=== PATIENT | male | born 1980 | race Two or more races ===

== ENCOUNTER 2018-10-14 12:46 | Emergency (ER) | payer SELFPAY ==
[~2018-10-14] VITALS: Ht 182.9 cm; Wt 107.0 kg
[2018-10-14] MEDS ORDERED: ONDANSETRON ODT 4 MG PO ONE (13:30)
[2018-10-14] MEDS ORDERED: KETOROLAC 30 MG/1 ML IM ONE (13:30)
[2018-10-14 13:58] LABS: BASOPHILS # (AUTO) 0.08 x10^3/uL (0-0.1); BASOPHILS % (AUTO) 1 % (0-1); EOSINOPHILS # (AUTO) 0.02 x10^3/uL (0-0.4); EOSINOPHILS % (AUTO) 0 % (1-7); LYMPHOCYTES # (AUTO) 1.92 x10^3/uL (1-3.4); LYMPHOCYTES % (AUTO) 27 % (22-44); MD NO; MEAN CORPUSCULAR HGB CONC 33.4 g/dL (33.2-36.2); MEAN CORPUSCULAR VOLUME 89.8 fL (81-97); MEAN PLATELET VOLUME 7.3 fL (7.4-10.4); MONOCYTES # (AUTO) 0.41 x10^3/uL (0.2-0.8); MONOCYTES % (AUTO) 6 % (2-9); NEUTROPHILS # (AUTO) 4.81 x10^3/uL (1.8-6.8); NEUTROPHILS % (AUTO) 67 % (42-75); PLATELET COUNT 423 x10^3/uL (130-400); RED BLOOD COUNT 5.56 x10^6/uL (4.38-5.82); RED CELL DISTRIBUTION WIDTH 13.2 % (9.4-14.8)
--- NOTE | 2018-10-14 14:02 | NUR ---
PT PRESENTS TO ED WITH C/O LEFT CP RADIATING TO LEFT ARM AND BACK X 2 WEEKS, DENIES SOB. PT ALSO NOTES LEFT CALF PAIN X 2 WEEKS. PT HAS HX DVT DX 06/2018, HAS BEEN NONCOMPLIANT WITH PRESCRIBED XARALTO D/T COST. PT A&O, NEURO INTACT, RESPS EVEN AND UNLABORED, NSR ON INCIDENT RESPONSE COORDINATOR WITH NO ECTOPY. CALL LIGHT IN REACH. PIV PLACED. AWAITING LABS/CTA AND DISPO.
[2018-10-14 14:10] LABS: ALBUMIN 4.2 g/dL (3.4-5.0); ANION GAP 6 mmol/L (5-15); CHLORIDE 111 mmol/L (98-107); CREATININE 1.25 mg/dL (0.7-1.3)
[2018-10-14 14:14] LABS: TROPONIN I < 0.015 ng/mL (0.000-0.045)
--- NOTE | 2018-10-14 14:40 | NUR ---
VERBAL ORDER RECEIVED TO CHANGE TORADOL ORDER TO 30 MG IV PUSH. PT MEDICATED PER EMAR, TOELERATED WELL. PT A&O, RESPS EVEN AND UNLABORED. NSR ON MONITOR. PT TO CT AT THIS TIME.
[2018-10-14 15:00] VITALS: BP 142/82
[2018-10-14] MEDS ORDERED: KETOROLAC 30 MG/1 ML IVPush ONE (15:00)
[2018-10-14] MEDS ORDERED: OMNIPAQUE 350 MG/ML, 100ML BOTTLE ONE (15:09)
--- NOTE | 2018-10-14 15:15 | NUR ---
PT BACK FROM CT, PT A&O, RESPS EVEN AND UNLABORED. PT REPORTS CP RESOLVED TO LEVEL 1/10. AWAITING CT RESULTS AND DISPO AT THIS TIME.
== END 2018-10-14 15:46 | disposition home or self-care (01) ==
LOC: ED 15:30
DX: S86.112A Strain of other muscle(s) and tendon(s) of posterior muscle group at lower leg level, left leg, initial encounter (principal); R07.89 Other chest pain; I10 Essential (primary) hypertension; X58.XXXA Exposure to other specified factors, initial encounter; Y93.89 Activity, other specified; Y92.89 Other specified places as the place of occurrence of the external cause; Y99.8 Other external cause status
CPT/HCPCS: 36415; 71275; 80048; 82040; 84484; 85025; 93005; 93971; 96374; 99284; J1885; Q0162; Q9967

== ENCOUNTER → 2018-12-07 | Outpatient (CLI) | payer OTHER ==
[2018-12-07 12:52] LABS: MICROSCOPIC AUTO
[2018-12-07 12:59] LABS: MEAN CORPUSCULAR HEMOGLOBIN 30.8 pg (27.5-34.5); MEAN CORPUSCULAR HGB CONC 34.3 g/dL (33.2-36.2); MEAN CORPUSCULAR VOLUME 89.8 fL (81-97); MEAN PLATELET VOLUME 7.4 fL (7.4-10.4); PLATELET COUNT 408 x10^3/uL (130-400); RED BLOOD COUNT 5.73 x10^6/uL (4.38-5.82)
[2018-12-07 13:37] LABS: CALCIUM 9.5 mg/dL (8.5-10.1); CHLORIDE 104 mmol/L (98-107)
[2018-12-07 13:47] LABS: ALANINE AMINOTRANSFERASE 56 U/L (12-78); ALBUMIN 4.5 g/dL (3.4-5.0); ALKALINE PHOSPHATASE 86 U/L (45-117); ANION GAP 7 mmol/L (5-15); BILIRUBIN,TOTAL 0.5 mg/dL (0.2-1.0); CHOL/HDL RATIO 4.2; CHOLESTEROL, TOTAL 206 mg/dL (140-239); CREATININE 1.27 mg/dL (0.7-1.3); HDL CHOL % 24 % (26-37); HDL CHOLESTEROL (DIRECT) 49 mg/dL (40-60); LDL CHOLESTEROL,CALCULATED 127 mg/dL (54-169); LDL/HDL RATIO 2.6 (0.5-3.0); T4 (THYROXINE) 9.5 mcg/dL (4.5-12.1); TOTAL PROTEIN 8.5 g/dL (6.4-8.2); TRIGLYCERIDES 150 mg/dL (50-200); VLDL CHOLESTEROL 30 mg/dL (0-25)
== END | disposition home or self-care (01) ==
LOC: LAB 11:22
PROVIDERS: ATTEND Registered Nurse
DX: E07.9 Disorder of thyroid, unspecified (principal); N50.819 Testicular pain, unspecified; R53.83 Other fatigue; Z83.3 Family history of diabetes mellitus; Z68.31 Body mass index [BMI] 31.0-31.9, adult
CPT/HCPCS: 36415; 80053; 80061; 81001; 82105; 82378; 84153; 84436; 84480; 84481; 85027

== ENCOUNTER 2019-02-06 13:25 | Emergency (ER) | payer MEDICAID, OTHER ==
[~2019-02-06] VITALS: Ht 182.9 cm; Wt 90.8 kg
--- NOTE | 2019-02-06 13:27 | NUR ---
C-COLLAR APPLIED IN TRIAGE. PATIENT TO ROOM 34.
[2019-02-06 13:29] VITALS: BP 151/84
[2019-02-06] MEDS ORDERED: HYDROcodone/APAP 5/325 TABLET PO ONE (14:00)
[2019-02-06] MEDS ORDERED: HYDROcodone/APAP 5/325 TABLET ONE (14:03)
== END 2019-02-06 14:24 | disposition home or self-care (01) ==
LOC: ED 14:20
DX: K02.9 Dental caries, unspecified (principal); I10 Essential (primary) hypertension; Z86.718 Personal history of other venous thrombosis and embolism
CPT/HCPCS: 99283